=== PATIENT | female | born 1960 | race Caucasian/White ===

== ENCOUNTER 2025-05-16 13:38 | Outpatient (CLI) | payer OTHER, MEDICAID | END 2025-05-16 13:39 | disposition home or self-care (01) | LOC: CSHULT 13:38 | PROVIDERS: ATTEND Family Medicine | DX: R60.0 Localized edema (principal); R93.1 Abnormal findings on diagnostic imaging of heart and coronary circulation | CPT/HCPCS: 93306 ==

== ENCOUNTER 2025-06-17 21:58 | Emergency (ER) | payer OTHER, MEDICAID ==
[2025-06-17 22:56] LABS: #Basophils 0.04 10x3/uL (0.0-0.2); #Eosinophils 0.14 10x3/uL (0.0-0.5); #Monocytes 0.55 10x3/uL (0.0-1.1); #Neutrophils 6.18 10x3/uL (1.5-8.4); %Basophils 0.5 % (0.0-2.0); %Eosinophils 1.6 % (0.0-6.0); %Lymphocytes 21.5 % (18.0-47.0); %Monocytes 6.2 % (0.0-10.0); %Neutrophils 69.6 % (40.0-75.0); Hematocrit 35.1 % (34.9-44.5); Hemoglobin 11.7 g/dL (12.0-15.5); Mean Corpuscular Hemoglobin 29.0 pg (27.0-33.0); Mean Corpuscular Volume 87.1 fL (81.6-98.3); Platelet Count 276 10x3/uL (150-450); Red Blood Cell (RBC) Count 4.03 10x6/uL (3.90-5.03); White Blood Cell (WBC) Count 8.87 10x3/uL (3.5-10.5)
[2025-06-17 23:06] LABS: INR-International Normal Ratio 1.0; Prothrombin Time 10.6 sec (9.5-12.1)
[2025-06-17 23:11] LABS: ALT (SGPT) 12 U/L (Less than 34); AST (SGOT) 28 U/L (11-34); Albumin 3.3 g/dL (3.1-4.5); Alkaline Phosphatase 97 U/L (40-110); Anion Gap 15 mmol/L (10-20); BUN (Urea Nitrogen) 19 mg/dL (9.8-20.1); Bilirubin, Total 0.6 mg/dL (0.3-1.2); Calc. Creatinine Clearance 0 mL/min (70-130); Calcium 8.7 mg/dL (7.8-10.44); Carbon Dioxide 24 mmol/L (23-31); Chloride 104 mmol/L (98-107); Globulin 3.9 g/dL (2.4-3.5); Glucose 223 mg/dL (80-115); Lipase 36 U/L (8-78); Potassium 4.2 mmol/L (3.5-5.1); Sodium 139 mmol/L (136-145)
== END 2025-06-18 02:29 | disposition home or self-care (01) ==
LOC: CSHERS 21:58
DX: K59.00 Constipation, unspecified (principal); E66.9 Obesity, unspecified; E10.9 Type 1 diabetes mellitus without complications; J45.909 Unspecified asthma, uncomplicated; E78.00 Pure hypercholesterolemia, unspecified; F17.290 Nicotine dependence, other tobacco product, uncomplicated; Z55.6 Problems related to health literacy; Z79.4 Long term (current) use of insulin; Z79.899 Other long term (current) drug therapy
CPT/HCPCS: 74022; 80053; 82274; 83690; 85025; 85610; 99284